=== PATIENT | female | born 1935 | race Caucasian/White ===

== ENCOUNTER → 2018-07-28 | Outpatient (CLI) | payer MEDICARE, OTHER ==
[~2018-07-28] MED LIST: GLUC-307 PO; LEVO75TA68 PO; REGADENOSON 0.4 MG/5 ML SYR ONE; SIMV-44 PO
--- NOTE | 2018-07-28 16:35 | RADIOLOGY IMAGING REPORT ---
FACILITY: [facility] - [place] PATIENT NAME: Lainey Shepard : 1935 MR: [id number] V: [id number] EXAM DATE: ORDERING PHYSICIAN: ISAIAS REDDY TECHNOLOGIST: Location: [facility] - [place] Patient: Lainey Shepard : 1935 Visit/Account:[id number] Date of Sevice: 07/28/2018 EXAMINATION: Single isotope SPECT imaging with regadenoson infusion and gated SPECT imaging. DATE OF EXAMINATION: 07/28/2018. DATE OF INTERPRETATION: 07/28/2018. REQUESTING PHYSICIAN: ISAIAS REDDY. INDICATION: The patient is a 83-year-old female evaluated for shortness of breath. PROCEDURE: After informed consent the patient received an intravenous injection of 11.8 mCi of Tc-99 m sestamibi followed at an appropriate time interval by rest imaging. The patient then subsequently received an intravenous infusion of 0.4 mg of regadenoson per protocol without complication. Resting heart rate was 62 bpm with a peak heart rate of 88 bpm. Blood pressure at rest was 134 / 84 and fol lowing infusion was 141 / 77. Baseline EKG demonstrates sinus rhythm. There were no EKG changes of ischemia following infusion. Symptoms were nonspecific. The patient then received an intravenous in jection of 29.8 mCi of Tc-99m sestamibi followed by stress imaging. RAW DATA: Examination of the summed raw data revealed a good quality study. MYOCARDIAL PERFUSION: The tomographic images demonstrate normal myocardial perfusion with no evidenc e of infarct or ischemia. There is no TID. GATED IMAGES: The gated images demonstrate hyperdynamic ejection fraction >70% with normal wall joshua on and thickening. IMPRESSION: 1. Nondiagnostic Lexiscan stress ECG 2. Normal myocardial perfusion scan. 3. Normal LV systolic function; LVEF >70%. 4. Based on the results of this exam, the patient appears to be at low risk for future cardiovascular events. Report Dictated By: Vincent Fitzgerald at 07/28/2018 4:31 PM Report E-Signed By: Vincent Fitzgerald at 07/28/2018 4:33 PM WSN:[id number]
--- NOTE | 2018-07-29 06:34 | RT STRESS TEST REPORT ---
FACILITY: [facility] PATIENT NAME: FREDERIC MARTINEZ : [id number] MR: [id number] V: [id number] EXAM DATE: ORDERING PHYSICIAN: ISAIAS REDDY TECHNOLOGIST: Pedro [employer] Time: 2018-07-28 14:36:30 Total Exercise Time: 00:01:00 Test Indications: Dyspnea Medications: see nuc med sheet Protocol: LEXISCAN Max HR: 088 BPM 64% of Pred: 136 BPM Max BP: 141/077 mmHG Max Work Load: 1.0 METS Confirmed by CARMEN SAMUEL ([id number]) on 07/29/2018 6:35:13 AM Referred By: Overread By: CARMEN SAMUEL
== END ==
LOC: NUC 03:57
PROVIDERS: ATTEND Nurse Practitioner Family
DX: R53.83 Other fatigue (principal); R06.09 Other forms of dyspnea
CPT/HCPCS: 78452; 93017; A9500; J2785

== ENCOUNTER → 2019-06-28 | Outpatient (CLI) | payer MEDICARE, OTHER ==
[~2019-06-28] MED LIST changes: +DENOSUMAB 60 MG/1 ML SYR SUBQ ONE; -REGADENOSON 0.4 MG/5 ML SYR ONE
[2019-06-28 08:45] VITALS: BP 139/74
== END ==
LOC: SPU 08:38
PROVIDERS: ATTEND Nurse Practitioner Family
DX: M40.209 Unspecified kyphosis, site unspecified (principal); M81.0 Age-related osteoporosis without current pathological fracture
CPT/HCPCS: 96372; J0897; 96365